=== PATIENT | female | born 1985 | race Caucasian/White ===

== ENCOUNTER 2017-06-15 07:25 | Inpatient (IN) | payer OTHER ==
[2017-06-15] MEDS ORDERED: CITRIC ACID/SODIUM CITRATE 30 ML UNIT-DOSE CUP PO ONE (07:30)
[2017-06-15] MEDS ORDERED: ELECTROLYTE-148 SOLN 500 ML IV ONE (07:30)
[2017-06-15 07:54] VITALS: BMI 43.2
[2017-06-15] MEDS ORDERED: ELECTROLYTE-148 SOLN 1,000 ML IV SCH (08:00)
--- NOTE | 2017-06-15 10:48 | HP ---
Past Medical History - Primary Care Physician PCP:: Saravanan Hart - Admission Chief Complaint: 31yo P2 at EGA 39wk with previous C/S admitted for repeat section and sterilization. 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: Alzheimer's, CVA, Dementia, Migraine, Multiple Sclerosis, Peripheral Neuropathy, Parkinson's, Seizure, Syncope, TIA, Vertigo, Other Cardiovascular: No: AFIB, Aneurysm, Aortic Insufficiency, Aortic Stenosis, CAD, CHF, Deep Vein Thrombosis, HTN, Hyperlipdemia, SC, Mitral Insufficiency, Mitral Stenosis, Murmur, Pulmonary Hypertension, Other Pulmonary: No: Asthma, Bronchitis, Cancer, COPD, O2 Dependent, Pneumonia, Previously Intubated, Pulmonary Embolus, Pulmonary Fibrosis, Sleep Apnea, Other Gastrointestinal: No: Ascites, Cancer, Constipation, Crohn's Disease, Diverticulitis, Diverticulosis, Esophageal Varices, Gastritis, GERD, GI Bleed, Hemorrhoids, Hiatal Hernia, Inflamatory Bowel Disease, Irritable Bowel Disease, Pancreatitis, Peptic Ulcer Disease, Ulcerative Colitis, Other Hepatobiliary: No: Cirrhosis, Cholelithiasis, Cholecystitis, Choledocholithiasis , Hepatitis A, Hepatitis B, Hepatitis C, Other Renal/: No: Renal Failure, Renal Inusuff, BPH, Cancer, Hematuria, Hemodialysis , Neurogenic Bladder, Renal Calculi, UTI, Other ...: 4 ...Para: 2 ( x 1, C/S x 1) ...Term: 2 ...: 0 ...Spon : 1 ...Induced : 0 ...Multiple Gestation: 0 ...LMP: 09/16/16 ... Weeks Gestation by Dates: 39.0 ...EDC by Dates: 06/23/17 ...EDC by Sono: 06/22/17 Heme/Onc: No: Anemia, B12 Deficiency, Bleeding Disorder, Cancer, Current Chemotherapy, Current Radiation Therapy, Hemochromatosis, Hypercoaguable State, Myeloproliferative Synd, Sickle Cell Disease, Sickle Cell Trait, Thrombocytopenia, Other Infectious Disease: No: AIDS, C-Diff, Herpes Zoster, HIV, MRSA, STD's, Tuberculosis, VREF, Other Psych: No: Addictions, Anxiety, Bipolar, Depression, Panic, Psychosis, Schizophrenia, Other Musculoskeletal: No: Bursitis, Chronic low back pain, Hemiparesis, Hemiplegia, Osteoarthritis, Paraplegia, Other Rheumatology: No: Fibromyalgia, Gout, Lupus, Rheumatoid Arthritis, Sarcoidosis, Vasculitis, Other ENT: No: Allergic Rhinitis, Sinusitis, Other Endocrine: Yes: Diabetes Mellitus Dermatology: Yes: Other (Acanthosis Negricans) Additional Medical History: Morbid obesity - Past Surgical History Past Surgical History: Yes: Hx Myomectomy: No Hx Transabdominal Cerclage: No - Smoking History Smoking history: Never smoked Have you smoked in the past 12 months: No - Alcohol/Substance Use Hx Alcohol Use: No History of Substance Use: reports: None - Social History Usual Living Arrangement: Yes: With Spouse, With Child ADL: Independent Occupation: RN History of Recent Travel: No Home Medications - Allergies Allergies/Adverse Reactions: Allergies Allergy/AdvReac Type Severity Reaction Status Date / Time No Known Allergies Allergy Verified 06/15/17 07:55 - Home Medications Home Medications: Ambulatory Orders Insulin Lispro [Humalog] 12 unit SQ ACDIN 06/15/17 RX: Vitamins (Sjr) - 1 tab PO DAILY 06/15/17 Family Disease History - Family Disease History Family History: Denies Review of Systems - Review of Systems Constitutional: reports: No Symptoms Eyes: reports: No Symptoms HENT: reports: No Symptoms Neck: reports: No Symptoms Cardiovascular: reports: No Symptoms Respiratory: reports: No Symptoms Gastrointestinal: reports: No Symptoms Genitourinary: reports: No Symptoms Breasts: reports: No Symptoms Reported Musculoskeletal: reports: No Symptoms Integumentary: reports: No Symptoms Neurological: reports: No Symptoms Endocrine: reports: No Symptoms Hematology/Lymphatic: reports: No Symptoms Psychiatric: reports: No Symptoms Pain Intensity: 0 Physical Exam - Maternity Vital Signs: Vital Signs Temperature 98.4 F 06/15/17 07:48 Pulse Rate 85 06/15/17 07:48 Respiratory Rate 20 06/15/17 07:48 Blood Pressure 129/63 06/15/17 07:48 O2 Sat by Pulse Oximetry (%) Constitutional: Yes: Well Nourished, No Distress, Calm Eyes: Yes: WNL, Conjunctiva Clear HENT: Yes: WNL, Atraumatic, Normocephalic Neck: Yes: WNL, Supple, Trachea Midline Cardiovascular: Yes: WNL, Regular Rate and Rhythm Lungs: Clear to auscultation, Normal air movement Breast(s): Yes: WNL - Abdominal Exam/OB Fundal Height: 42 Number of Fetuses: Single Presentation: Vertex Contractions: No Intensity: Unaware Heart Rate (range): 145 Heart Rate Location: Midline Category: I Accelerations: Non-Uniform Decelerations: None (Moderate variability) - Vaginal Exam/OB Vaginal Bleediing: No Speculum Exam: No Amniotic Membrane Status: Intact Presentation: Vertex/Position Station: -4 - Physical Exam Musculoskeletal: Yes: WNL Extremities: Yes: WNL Edema: Yes Edema: LLE: Trace, RLE: Trace Integumentary: Yes: WNL Deep Tendon Reflex Grade: Normal +2 ...Motor Strength: WNL Psychiatric: Yes: WNL, Alert, Oriented Hemorrhage Risk Assessment - Risk Factors Medium Risk Factors: Yes: Prior , uterine surgery,or multiple laparotomies, Obesity (BMI >40) High Risk Factors: Yes: None Risk Score: 2 Risk Level: High Risk Imaging - Results Ultrasound: Report Reviewed Assessment/Plan 31yo P2 with at EGA 39wks admitted for repeat C/S and BTL. We discussed the risks and benefits of C/S at length, including but not limited to scarring, pain, bleeding, infection, injury to underlying organs and structures , need for additional surgery to repair/treat any problems or complications, complications/injuries, etc. We discussed the BTL and risks of failed sterilization. The pt verbalized her understanding and requested to proceed with surgery.
[2017-06-15 11:58] LABS: ARTERIAL BLD GAS O2 SATURATION 4.7 % (90-98.9); ARTERIAL BLOOD GAS BASE EXCESS -5.2 meq/l (-2-2); ARTERIAL BLOOD GAS HCO3 25.1 meq/L (22-26); ARTERIAL BLOOD GAS PO2 7.4 mmHg (80-100)
[2017-06-15 12:00] LABS: ARTERIAL BLD GAS O2 SATURATION 60.4 % (90-98.9); ARTERIAL BLOOD GAS BASE EXCESS -2.7 meq/l (-2-2); ARTERIAL BLOOD GAS HCO3 23.1 meq/L (22-26); ARTERIAL BLOOD GAS pH 7.32 (7.35-7.45)
[2017-06-15 12:05] LABS: PT. ON O2? NO
[2017-06-15 12:06] LABS: LPM/O2% CORD BLOOD ARTERIAL
[2017-06-15 12:08] LABS: ARTERIAL BLOOD GAS pH 7.15 (7.35-7.45)
[2017-06-15 12:09] LABS: PT. ON O2? NO
[2017-06-15 12:10] LABS: LPM/O2% VENOUS CORD BLOOD
[2017-06-15 12:11] LABS: ARTERIAL BLOOD GAS PO2 28.7 mmHg (80-100)
[2017-06-15] MEDS ORDERED: ONDANSETRON 4 MG/2 ML VIAL IVPB PRN (12:15)
[2017-06-15] MEDS ORDERED: ACETAMINOPHEN 1000 MG/100 ML VIAL (NON FORMULARY) IVPB PRN (12:16)
[2017-06-15] MEDS ORDERED: IBUPROFEN 800 MG/8 ML IJ IVPB PRN (12:17)
[2017-06-15] MEDS ORDERED: METHYLERGONOVINE MALEATE 0.2 MG/1 ML AMP IM PRN (12:39)
[2017-06-15] MEDS ORDERED: CEFAZOLIN 1 GM in DEXTROSE 5%-WATER - 50 ML IVPB SCH ×2 (12:45→18:00)
--- NOTE | 2017-06-15 12:48 | OP ---
Operative Note - Note: Operative Date: 06/15/17 Pre-Operative Diagnosis: at EGA 39wk. Morbid obesity. Type II DM. Prior C/S. Sterilization Operation: Repeat C/S, BTL Findings: Live baby boy in vtx presentation, no meconium in amniotic fluid, normal uterus/ tubes/ovaries. Post-Operative Diagnosis: Same as Pre-op Surgeon: Saravanan Hart Clinical Laboratory Technologist: Tristian Lopez Anesthesiologist/METAL FURNITURE REPAIRER: Estrellita Lynn Anesthesia: Spinal Specimens Removed: Placenta, fragment of fallopian tubes Estimated Blood Loss (mls): 1,000 Drains & Tubes with Location: Campa cath Drains, Volume Out (mls): 100 Blood Volume Replaced (mls): 0 Fluid Volume Replaced (mls): 2,500 Operative Report Dictated: Yes
--- NOTE | 2017-06-15 13:48 | OP ---
DATE OF OPERATION: 06/15/2017 PREOPERATIVE DIAGNOSIS: at estimated gestational age of 39 weeks and 0 days, morbid obesity, type 2 diabetes mellitus, prior section, sterilization. POSTOPERATIVE DIAGNOSIS: at estimated gestational age of 39 weeks and 0 days, morbid obesity, type 2 diabetes mellitus, prior section, sterilization, delivered. PROCEDURE: Repeat low transverse section via Pfannenstiel skin incision, bilateral tubal ligation via modified Mendon method. SURGEON: Saravanan Hart MD CREDIT PORTFOLIO MANAGER: Tristian Lopez MD ANESTHESIOLOGIST: Estrellita Lynn MD ANESTHESIA: Spinal. COMPLICATIONS: None. ESTIMATED BLOOD LOSS: 1000 mL. URINE OUTPUT: Clear urine, 100 mL, at the end of the procedure. INTRAVENOUS FLUIDS: Crystalloid, 2500 mL. PATHOLOGY: Placenta and fragments of bilateral fallopian tubes. FINDINGS: Live baby boy in vertex presentation. No meconium in amniotic fluid. Normal uterus, fallopian tubes and ovaries. DESCRIPTION OF PROCEDURE: The patient was met preoperatively. Risks, benefits, and alternatives to surgery were discussed in details. all questions were answered. The patient was then brought to the OR with IV running. She was placed on the surgical table in the sitting position. The spinal anesthesia was achieved without difficulty. The patient was then placed in a supine position with a leftward tilt. A Campa catheter was inserted and left to drain to gravity. The patient was prepped and draped in the usual sterile fashion. The time-out procedure was conducted as per standard protocol. The Pfannenstiel incision was made with the knife along the prior scar. The incision was taken down to the level of fascia. The fascia was incised in the midline, and the incision was extended bilaterally using Castaneda scissors. The fascia was dissected away from the rectus muscles superiorly and inferiorly. The rectus muscles were in the midline. The peritoneum was entered sharply. The peritoneal incision was extended superiorly and inferiorly. The bladder peritoneum was dissected away from the lower uterine segment using sharp dissection. The bladder was reflected downwards. The uterus was incised transversely in the lower uterine segment. The uterine incision was extended bilaterally using bandage scissors. The amniotic sac was ruptured. Clear amniotic fluid was noted. A live baby boy was delivered from vertex presentation without complications. The placenta was removed manually. The uterus was cleared of all clots and debris. The uterine incision was repaired using a 0 Biosyn suture in the running locking stitch. The uterine incision was then imbricated using a 0 Biosyn suture with good hemostasis and approximation. The bladder peritoneum was then reapproximated using a 0 Biosyn suture. The operative site was irrigated with copious amounts of normal saline, and good hemostasis was noted. The left fallopian tube was located and followed to the fimbriated end. The mid portion of the left fallopian tube was suture ligated and excised with good hemostasis. The right fallopian tube was also located and followed to the fimbriated end. The mid portion of the right fallopian tube was suture ligated and excised with good hemostasis. The abdominal peritoneum was then closed using a 2-0 chromic suture. The rectus muscles were approximated in the midline using several interrupted 2-0 chromic sutures. The fascia was closed using a 0 Vicryl suture in two segments. The subcutaneous adipose tissues were approximated using several interrupted chromic sutures in two layers. The skin was closed using a 4-0 Vicryl suture with a subcutaneous stitch. The sponge, lap, and instrument counts were correct. The patient tolerated the procedure well and was transferred to the recovery room in a stable condition. Lulu [id number]
[2017-06-15] MEDS: OXYTOCIN 20 UNITS in 0.9% NS 1,000 ML IV SCH (14:58)
[2017-06-15] MEDS: CEFAZOLIN (PRE-DOCKED) 50 ML IVPB SCH (18:00)
[2017-06-16] MEDS: CEFAZOLIN (PRE-DOCKED) 50 ML IVPB SCH ×2 (01:58→09:15)
[2017-06-16 07:17] LABS: BASOPHIL 0.7 % (0-2.0); MEAN CELL VOLUME 88.4 fl (80-96); MEAN PLT VOLUME 8.5 fl (7.5-11.1); NEUTROPHILS 69.7 % (42.8-82.8); PLATELET COUNT 313 K/MM3 (134-434); RDW 14.2 % (11.6-15.6); WHITE BLOOD COUNT 12.5 K/mm3 (4.0-10.0)
[2017-06-16] MEDS: ENOXAPARIN NA (PORCINE) 40 MG/0.4 ML DISP.SYRIN SQ SCH (09:15)
[2017-06-16] MEDS ORDERED: ENOXAPARIN NA (PORCINE) 40 MG/0.4 ML DISP.SYRIN SQ SCH (10:00)
[2017-06-16] MEDS: PRENATAL VITAMINS W/ FOLIC ACID TABLET (FP) PO SCH (10:18)
--- NOTE | 2017-06-16 11:51 | PN ---
Progress Note (short form) - Note Progress Note: pod 1 doing well, ambulating CBC, BMP 06/16/17 06:00 Last Vital Signs Temp Pulse Resp BP Pulse Ox 98.7 F 86 18 116/67 99 06/16/17 06:00 06/16/17 06:00 06/16/17 06:00 06/16/17 06:00 06/15/17 14:00 abdomen soft, no distension, no cva incision dry, clean no calf tenderness plan ambulate, advance diet.
[2017-06-16] MEDS ORDERED: BISACODYL 10 MG SUPP.RECT RC PRN (12:39)
[2017-06-16] MEDS ORDERED: DIPHTH,PERTUSS(ACELL),TET 0.5 ML DISP.SYRIN IM ONE (14:00)
[2017-06-16] MEDS: oxyCODONE HCL 5 MG TABLET PO PRN ×2 (14:43→22:18)
[2017-06-16] MEDS: SIMETHICONE 80 MG TAB.CHEW (FP) PO PRN (14:45)
[2017-06-16] MEDS: IBUPROFEN 600 MG TABLET (FP) PO PRN ×2 (14:45→22:17)
--- NOTE | 2017-06-16 16:45 | PN ---
Progress Note (short form) - Note Progress Note: Anesthesiology post op check S/p c section post op day 1 under spinal anesthesia with duramorph for post op pain control Patient reports adequate pain control, no nausea or vomiting and full return of motor function. Vital Signs Temperature 98.7 F 06/16/17 14:01 Pulse Rate 78 06/16/17 14:01 Respiratory Rate 20 06/16/17 14:01 Blood Pressure 140/73 06/16/17 14:01 O2 Sat by Pulse Oximetry (%) 99 06/15/17 14:00 No sign of neurologic deficits A/P no adverse effects of anesthetic, dept of anesthesia will sign off care at this time, Feel free to re consult the department with further questions or concerns regarding pain or the anesthetic administered.
[2017-06-17] MEDS: PRENATAL VITAMINS W/ FOLIC ACID TABLET (FP) PO SCH (09:11)
[2017-06-17] MEDS: ENOXAPARIN NA (PORCINE) 40 MG/0.4 ML DISP.SYRIN SQ SCH (09:12)
--- NOTE | 2017-06-17 12:10 | PN ---
Progress Note (short form) - Note Progress Note: pod 2 doing well, ambulating CBC, BMP 06/16/17 06:00 Last Vital Signs Temp Pulse Resp BP Pulse Ox 98.4 F 70 20 123/74 99 06/17/17 10:00 06/17/17 10:00 06/17/17 10:00 06/17/17 10:00 06/15/17 14:00 abdomen soft, no distension , no cva. incision dry, clean no calf tenderness BGM ok plan ambilate, cbc in am
[2017-06-17] MEDS: ACETAMINOPHEN 325 MG TABLET (FP) PO PRN ×2 (14:14→22:33)
[2017-06-17] MEDS: SIMETHICONE 80 MG TAB.CHEW (FP) PO PRN (14:14)
[2017-06-17] MEDS: IBUPROFEN 600 MG TABLET (FP) PO PRN ×2 (14:15→22:33)
[2017-06-17] MEDS: ELECTROLYTE-148 SOLN 1,000 ML IV SCH (21:10)
[2017-06-17] MEDS: OXYTOCIN 20 UNITS in 0.9% NS 1,000 ML IV SCH ×2 (21:10→21:11)
[2017-06-18 07:12] LABS: BASOPHIL 0.7 % (0-2.0); EOSINOPHIL 5.3 % (0-4.5); MCH 30.6 pg (25.7-33.7); MCHC 34.6 g/dl (32.0-36.0); MEAN CELL VOLUME 88.3 fl (80-96); NEUTROPHILS 61.7 % (42.8-82.8); PLATELET COUNT 360 K/MM3 (134-434); RDW 14.3 % (11.6-15.6); WHITE BLOOD COUNT 8.5 K/mm3 (4.0-10.0)
[2017-06-18 07:58] VITALS: BP 115/69; PULSE 63; TEMP 98.1
--- NOTE | 2017-06-18 08:07 | DS ---
Physical Exam-UTILITY WORKER DRIVER Vital Signs: Vital Signs Temperature 98.1 F 06/18/17 07:57 Pulse Rate 63 06/18/17 07:57 Respiratory Rate 18 06/18/17 07:57 Blood Pressure 115/69 06/18/17 07:57 O2 Sat by Pulse Oximetry (%) 99 06/15/17 14:00 Constitutional: Yes: Well Nourished, No Distress, Calm Eyes: Yes: WNL, Conjunctiva Clear, EOM Intact HENT: Yes: WNL, Atraumatic, Normocephalic Neck: Yes: WNL, Supple, Trachea Midline Cardiovascular: Yes: WNL, Regular Rate and Rhythm Respiratory: Yes: WNL, Regular, CTA Bilaterally Gastrointestinal: Yes: WNL ...Rectal Exam: Yes: WNL Renal/: Yes: WNL External Genitalia: Yes: Normal ....Post : Yes: Uterus firm, Uterus non-tender, Slight lochia rubra Breast(s): Yes: WNL Musculoskeletal: Yes: WNL Extremities: Yes: WNL Integumentary: Yes: WNL Wound/Incision: Yes: Clean/Dry, Well Approximated, Sutures Intact Neurological: Yes: WNL, Alert, Oriented ...Motor Strength: WNL Psychiatric: Yes: WNL, Alert, Oriented Labs: CBC, BMP 06/18/17 06:45 Delivery - Delivery Section: Low Flap Transverse (no complication) Type of Anesthesia: Spinal Episiotomy/Laceration: None EBL (cc): 1,000 Delivery, Single - Stages of Labor Date of Delivery: 06/15/17 Time of Delivery: 11:34 Time Placenta Delivered: 11:35 Placenta: Yes: Expressed - Condition of Infant Service Station Attendant/Metal Trimmer Present: Yes Name: Merlin Villalobos Infant Gender: Male Weight: 9 lb 1 oz Position: Left, OT Total Hours ROM (Hrs/Mins): 0hrs 2min - 1 Minute Total Score: 9 5 Minutes Total Score: 9 - [place] Feeding Plan Initial Plan: Elected not to breastfeed exclusively throughout hospitalization Discharge Summary Reason For Visit: REPEAT SECTION Procedures: Principal: repeat LST c/s Other Procedures: BTL Hospital Course: BS are normal Condition: Good - Instructions Diet, Activity, Other Instructions: 800 ADA diet, follow up office 1 week Referrals: Dougherty,Saravanan, MD [Staff Physician] - Disposition: HOME - Home Medications Comprehensive Discharge Medication List: Ambulatory Orders Insulin Lispro [Humalog] 12 unit SQ ACDIN 06/15/17 Vitamins (Sjr) - 1 tab PO DAILY 06/15/17 Ibuprofen [Motrin -] 600 mg PO QID #28 tablet 06/17/17
[2017-06-18] MEDS: ENOXAPARIN NA (PORCINE) 40 MG/0.4 ML DISP.SYRIN SQ SCH (09:05)
[2017-06-18] MEDS: SIMETHICONE 80 MG TAB.CHEW (FP) PO PRN (09:06)
[2017-06-18] MEDS: PRENATAL VITAMINS W/ FOLIC ACID TABLET (FP) PO SCH (09:06)
[2017-06-18] MEDS: IBUPROFEN 600 MG TABLET (FP) PO PRN (09:06)
[2017-06-18] MEDS: ACETAMINOPHEN 325 MG TABLET (FP) PO PRN (09:07)
--- NOTE | 2017-06-19 17:03 | PATH ---
Surgical Pathology Report Patient Name: MILI HENDERSON [facility]. Rec. #: [id number] /Age/Gender: 1985 (Age: 31) / F Account: [id number] Location: [facility] OBS/ACCOUNT CONTACT ASSOCIATE Taken: 06/15/2017 Received: 06/18/2017 Reported: 06/19/2017 Physicians: Saravanan Hart M.D. Specimen(s) Received A: PLACENTA B: LEFT FALLOPIAN TUBE C: RIGHT FALLOPIAN TUBE Clinical History , type II diabetic on insulin. May 2004, section May 2012 macrosomia, SPAB x1 Final Diagnosis A. PLACENTA, DELIVERY: THIRD TRIMESTER PLACENTA WITH 3 VESSEL UMBILICAL CORD AND CIRCUMMARGINATE INSERTION OF MEMBRANES. B. LEFT FALLOPIAN TUBE, PARTIAL SALPINGECTOMY: FULL LUMINAL PORTION OF UNREMARKABLE FALLOPIAN TUBE. C. RIGHT FALLOPIAN TUBE, PARTIAL SALPINGECTOMY: FULL LUMINAL PORTION OF UNREMARKABLE FALLOPIAN TUBE. Electronically Signed Seng Andrea M.D. Gross Description A. The specimen is received fresh labeled placenta and is a 651 gram, 20 x 19 x 4 cm. placenta with attached membranes and umbilical cord. The attached membranes are glistening and translucent and insert in a circummarginate manner across half the placental disc, up to 5 cm from the placental margin.. The umbilical cord measures 30 cm. in length and averages 1.7 cm. in diameter. The cord inserts eccentrically, 6.5 cm. to the nearest margin. No true knots or strictures are identified. Cut surface of the umbilical cord reveals 3 vessels. The surface is cruz-blue with minimal fibrin deposition and appropriate caliber vessels. The maternal surface is lobulated and appears complete with no adherent blood clots or areas of thinning. Sectioning reveals red-brown, spongy parenchyma. No lesions are identified. Medical Sales Representative sections are submitted in three cassettes as follows: 1- membrane rolls and umbilical cord; 2-3- full thickness sections of placenta. B. Received fresh labeled "portion of left fallopian tube" is a 1.0 cm long x 0.5 cm in diameter portion of tissue grossly consistent with a portion of fallopian tube. The fimbriated end is not identified. No focal lesions are identified. Sectioned and totally submitted in one cassette. C. Received fresh labeled "portion of right fallopian tube" is a 1.8 cm long x 0.5 cm in diameter portion of tissue grossly consistent with a portion of fallopian tube. The fimbriated end is not identified. No focal lesions are identified. Sectioned and totally submitted in one cassette. [facility]/06/18/2017 [facility]/06/18/2017
== END 2017-06-18 12:00 | disposition home or self-care (01) | DRG 765 ==
LOC: JLDR 07:25 → J3W 14:58
PROVIDERS: ADMIT Obstetrics & Gynecology; ATTEND Obstetrics & Gynecology
PROC: 10D00Z1 Extraction of Products of Conception, Low, Open Approach (ICD-10-PCS; principal; 2017-06-15)
PROC: 0UL70ZZ Occlusion of Bilateral Fallopian Tubes, Open Approach (ICD-10-PCS; 2017-06-15)
DX: O34.211 Maternal care for low transverse scar from previous cesarean delivery (principal); Z68.41 Body mass index [BMI] 40.0-44.9, adult; N85.8 Other specified noninflammatory disorders of uterus; O24.92 Unspecified diabetes mellitus in childbirth; O99.214 Obesity complicating childbirth; E66.01 Morbid (severe) obesity due to excess calories; Z3A.39 39 weeks gestation of pregnancy; Z30.2 Encounter for sterilization; Z37.0 Single live birth
CPT/HCPCS: 36415; 36600; 82803; 85025; 88302-TC; 88307-TC; 90715